=== PATIENT | male | born 1980 | race Caucasian/White ===

== ENCOUNTER → 2023-01-18 08:20 | Outpatient (REF) | payer BC, MEDICAID, SELFPAY ==
--- NOTE | 2023-01-18 08:24 | CA_ITS ---
Transthoracic Echocardiogram Patient (Last, First, Middle): Luisito Rothman, Gender: Male Date of : 1980 Age: 42 Procedure Date: 01/18/2023 Procedure Type: Transthoracic Echocardiogram Location: [place] Height: 190.5 cm Weight: 129.28 kg BSA: 2.55 m2 Heart Rate: bpm BP: 128 / 80 mmHg Steel Layer: Referring MD: Asa Victor MD Trading Manager: Moe Cobian MD Symptoms: R06.09 DYSPNEA,R94.31 ABN.EKG Study Quality: Fair ECG Rhythm: Sinus Conclusions: - Normal study Findings Left Ventricle Normal left ventricular size, thickness, and systolic function. The visually estimated ejection fraction is between 60-65%. Spectral Doppler is indicative of a normal filling pattern. Peak GLS is -18.8%, within normal limits. Right Ventricle Normal right ventricular cavity size and systolic function. Atria Both atria are normal in size. There is lipomatous hypertrophy of the interatrial septum. There is no evidence of interatrial shunt. Aortic Valve Normal aortic valve structure and function. There is no aortic valve stenosis. There is no aortic valve regurgitation. Mitral Valve Normal mitral valve structure and function. There is trace mitral valve regurgitation. There is no mitral valve stenosis. Pulmonic Valve The pulmonic valve is likely normal. Tricuspid Valve Normal tricuspid valve structure. There is trace tricuspid valve regurgitation. The right ventricular systolic pressure is normal. The right ventricular systolic pressure is 16 mmHg. Normal right atrial pressure. There is no evidence of pulmonary hypertension. Great Vessels All visible segments of the aorta are normal in size. The pulmonary artery was not well visualized. Venous The inferior vena cava is normal in size and collapses greater than 50% with inspiration. Pericardium/Pleural There is no evidence of pericardial effusion. Prior Study Comparison No prior study available for comparison. Measurements 2D Linear Measurements IVSd: 1.00 0.6-0.9/0.6-1.0 cm LVIDd: 5.22 3.9-5.3/4.2-5.9 cm LVIDd Index: 2.05 2.4-3.2/2.2-3.1 cm/m2 LVIDs: 3.29 2.0-3.6 cm LVPWd: 1.12 0.7-1.1 cm Ao Root: 3.60 2.1-3.5 cm LA Diam: 3.90 2.7-3.8/3.0-4.0 cm LAIDs Index: 1.53 1.5-2.3 cm/m2 LV Mass: 263.34 67-162/88-224 g LV Mass Index: 103.27 43-95/49-115 g/m2 LVOT Diam: 2.50 3.0+(-)1.3 cm Mitral Valve MV Pk E: 0.71 MV PK A: 0.63 MV Decel Time: 152.00 E/A: 1.10 E'Lateral: 11.60 E'Medial: 9.14 E/E' Med: 7.70 E/E' Lat: 6.10 PHT: 45.00 MVA PHT: 4.89 Decel Major: 4.64 Aortic Valve AoV Pk Alex: 1.19 AoV Mn Alex: 0.84 AoV VTI: 0.27 AoV Pk Grad: 6.00 Aov Mn Grad: 3.00 JUAN Cont.VTI: 3.12 LVOT LVOT Pk Alex: 0.81 LVOT Mn Alex: 0.55 LVOT VTI: 0.17 LVOT Pk Grad: 3.00 LVOT Mn Grad: 1.00 LVOT Diam: 2.50 LVOT Area: 4.91 Diastolic Function MV Pk E: 0.71 MV Pk A: 0.63 E/A: 1.10 E'Medial: 9.14 E/E' Med: 7.70 E' Laterial: 11.60 E/E' Lat: 6.10 Right Ventricle TAPSE (mm): 29.00 TVS' Alex: 16.00 Tricuspid Valve TR Pk Alex: 1.82 TR Pk Grad: 13.00 RA Press: 3.00 RVSP: 16.00 Great Vessels Aorta Ao Root-2D: 3.60 2.0-3.7 cm Ao Asc: 3.30 2.1-3.4 cm Pulmonary Valve PV Pk Alex: 0.99 Peak PV Grad: 4.00 Updated in Other Vendor System with Status of Final Moe Cobian MD electronically signed on 01/18/2023 4:36:59 PM with status of Final
== END ==
LOC: HO.CARD 08:20
PROVIDERS: PCP Pediatrics; Visit Provider Internal Medicine Cardiovascular Disease
DX: R06.00 Dyspnea, unspecified (principal)
CPT/HCPCS: 93306; 93356